=== PATIENT | female | born 1990 | race Two or more races ===

== ENCOUNTER → 2018-01-23 13:51 | Outpatient (CLI) | payer OTHER, SELFPAY ==
--- NOTE | 2018-01-23 14:01 | MM_ITS ---
MM Dig mamm BI DX w/CAD RIGHT MAMMOGRAM COMPLETE WITH AXILLA No previous studies available for comparison. INDICATION: Bilateral breast pain, reported palpable abnormality in the superior periareolar region. ORDERING PHYSICIAN: Delgado Dent MD PATIENT AGE: 27 years TECHNIQUE: Standard mammogram performed along spot compression view of the right breast. FINDINGS: There is dense fibroglandular tissue bilaterally decreasing the sensitivity of mammography. Asymmetric density is present in the retroareolar region on both sides and in the deep aspect of the right breast felt to be related to fibroglandular tissue. No malignant appearing mass or malignant appearing microcalcification. Right breast ultrasound: No cystic or solid lesions evident. There are small nodes in the axilla. IMPRESSION: No evidence of malignancy. BI-RADS Category: 2 Benign Finding(s) Follow-up is suggested as clinically warranted. Correlation with clinical exam is apparent amount in this patient with dense breast tissue. Any palpable nodule should be managed on a clinical basis. Negative mammogram and negative ultrasound does not exclude the possibility of malignancy especially in a patient with fairly dense breast tissue.
--- NOTE | 2018-01-23 14:01 | US_ITS ---
US transvaginal HISTORY: Painful intercourse ITS.REASON: dub ORDERING PHYSICIAN: Delgado Dent MD PATIENT AGE: 27 years FINDINGS: Uterus is 8 x 4 x 5.5 cm with a combined endometrial thickness of 7 mm. Small area of fluid echogenicity is noted within the superior aspect of the endometrial canal. The transverse images there is an 8 mm area of isoechogenicity noted within the endometrial canal and could be due to small polyp. Partial volume averaging artifact from the overlying fluid is also a consideration. scar is noted. The left ovary is 4 x 3.5 cm and contains multiple small follicles measuring up to 9 mm. Blood flow is present. The right ovary measures 2.3 x 1.8 cm and contains small follicles measuring up to 8 mm. Blood flow is present. No cul-de-sac fluid is evident. IMPRESSION: 1. Possible small uterine endometrial polyp. 2. Bilateral ovarian follicles
== END ==
PROVIDERS: PCP Family Medicine; Visit Provider Obstetrics & Gynecology
DX: R92.8 Other abnormal and inconclusive findings on diagnostic imaging of breast (principal); N93.8 Other specified abnormal uterine and vaginal bleeding
CPT/HCPCS: 76641; 76830; 77066

== ENCOUNTER 2021-02-19 20:59 | Emergency (ER) | payer OTHER, SELFPAY ==
[2021-02-19 21:08] VITALS: BP 125/80; PULSE 79; RESP 16; TEMP 36.9; O2SAT 99; BMI 26.5
--- NOTE | 2021-02-19 21:20 | CT_ITS ---
PROCEDURE INFORMATION: Exam: CT Head Without Contrast Exam date and time: 02/19/2021 9:20 PM Age: 30 years old Clinical indication: Pain; Headache; Aura effect not specified; Does not respond to medication; Severity not specified; Patient HX: Migraine for 1 day, HX of migraines; Additional info: H/a TECHNIQUE: Imaging protocol: Computed tomography of the head without contrast. Radiation optimization: All CT scans at this facility use at least one of these dose optimization techniques: automated exposure control; mA and/or kV adjustment per patient size (includes targeted exams where dose is matched to clinical indication); or iterative reconstruction. COMPARISON: No relevant prior studies available. FINDINGS: Brain: Normal. No hemorrhage. Unremarkable white matter. No mass effect. Cerebral ventricles: No ventriculomegaly. Bones/joints: Unremarkable. No acute fracture. Paranasal sinuses: Small mucous retention cyst or polyp involving the right sphenoid sinus. Mastoid air cells: Visualized mastoid air cells are well aerated. Soft tissues: Unremarkable. IMPRESSION: No acute intracranial abnormality.
--- NOTE | 2021-02-19 21:20 | CT_ITS ---
PROCEDURE INFORMATION: Exam: CT Maxillofacial Without Contrast, Sinus Exam date and time: 02/19/2021 9:20 PM Age: 30 years old Clinical indication: Pain; Headache; Aura effect not specified; Migraine responds to medication? ; Severity not specified; Patient HX: Migraine for 1 day, HX of migraines; Additional info: H/a TECHNIQUE: Imaging protocol: CT Maxillofacial without contrast. Focus on the sinuses. Radiation optimization: All CT scans at this facility use at least one of these dose optimization techniques: automated exposure control; mA and/or kV adjustment per patient size (includes targeted exams where dose is matched to clinical indication); or iterative reconstruction. COMPARISON: No relevant prior studies available. FINDINGS: Frontal sinuses: Normal. No air-fluid levels. Ethmoid air cells: Normal. No air-fluid levels. Sphenoid sinuses: Right sphenoid sinus mucous retention cyst or polyp measures 8 mm. Maxillary sinuses: Right maxillary sinus mucous retention cyst or polyp measures 7 mm. There is minimal additional mucosal thickening involving both maxillary sinuses. Nasal cavity/Septum: Unremarkable. Orbital cavity: Orbits are normal. Globes are unremarkable. Bones/joints: Unremarkable. Soft tissues: Unremarkable. IMPRESSION: 1. No acute abnormality. 2. Mild sinus mucosal disease as above.
[2021-02-19 21:29] LABS: Microscopic, Urine URINE MICROSCOPIC (MICROSCOPIC)
[2021-02-19 21:32] LABS: Basophils % 0.3 % (0.1-2.0); Eosinophils % 0.4 % (0.1-12.0); Hematocrit 38.7 % (37.0-47.0); Hemoglobin 13.1 g/dL (12.2-16.2); Lymphocytes # 1.5 K/mm3 (0.7-4.5); Mean Corpuscular HGB Conc 33.8 g/dL (31.8-35.4); Mean Corpuscular Hemoglobin 29.9 pg (27.0-31.2); Mean Corpuscular Volume 88.4 fl (81-99); Mean Platelet Volume 8.2 fl (7.4-10.4); Monocytes # 0.4 K/mm3 (0.1-1.0); Monocytes % 3.9 % (1.7-9.3); Neutrophils # 8.2 K/mm3 (1.8-7.8); Neutrophils % 80.4 % (37.0-80.0); Platelet Count 258 K/mm3 (142-424); Red Blood Count 4.37 M/mm3 (4.20-5.40); Red Cell Distribution Width 13.6 % (11.5-17.5); White Blood Count 10.1 K/mm3 (4.8-10.8)
[2021-02-19 21:33] LABS: Appearance,Urine CLEAR (Clear); Bilirubin,Urine Negative (Negative); Blood, Urine 3+ (Negative); Color,Urine YELLOW (Yellow); Glucose,Urine (UA) Negative (Negative); Ketones,Urine 1+ (Negative); Leukocyte Esterase,Urine TRACE (Negative); Nitrate,Urine Negative (Negative); Protein,Urine 1+ (Negative); Specific Gravity, Urine 1.015 (1.005-1.030)
[2021-02-19 21:36] LABS: Alanine Aminotransferase 17 U/L (12-78); Albumin Level 4.9 g/dl (3.5-5.0); Albumin/Globulin Ratio 1.5 (1.1-1.8); Alkaline Phosphatase 62 U/L (38-126); Anion Gap 10.6 mEq/L (5-15); Aspartate Amino Transferase 25 U/L (14-36); Bilirubin,Total 0.6 mg/dl (0.2-1.3); Blood Urea Nitrogen 8 mg/dl (7-17); Calcium 9.5 mg/dl (8.4-10.2); Carbon Dioxide 27 mmol/L (22.0-30.0); Chloride 105 mmol/L (98-107); Creatinine Clearance Estimated 144 mL/min (50-200); Estimated Glomerular Filt Rate 118 ml/min (>60); GFR (African American) 143 ML/MIN (>60); Globulin 3.2 g/dL (1.3-3.2); Glucose 103 mg/dl (74-100); Potassium 3.6 mmoL/L (3.5-5.1); Sodium 139 mmol/L (136-145); Total Protein,Serum 8.1 g/dl (6.3-8.2)
[2021-02-19 21:39] LABS: Bacteria,Urine 1+ /lpf; RBC,Urine TNTC #/hpf (0-3)
[2021-02-19 21:40] LABS: Urine Pregnancy, HCG Qual. Negative (Negative)
[2021-02-19 21:41] LABS: C-Reactive Protein 3.3 mg/L (0-4)
--- NOTE | 2021-02-19 21:44 | HMH.EDHA ---
ED Disposition Clinical Impression: Headache Qualifiers: Headache type: unspecified Headache chronicity pattern: acute headache Intractability: not intractable Qualified Code(s): R51.9 - Headache, unspecified Disposition: Home, Self-Care Condition on Discharge: Good Instructions: DI for Headache Additional Instructions: use meds and see pcp and neuro Referrals: Lyndon East [Primary Care Provider] - Liliam Drake MD [Staff Physician] - - Critical Care Critical Care Time: No Attestation: On 02/19/21, the high probability of a clinically significant, sudden or life threatening deterioration of the following system(s) required my full and direct attention, intervention and personal management. The time I documented below is in addition to time spent performing reported procedures but includes the following listed in this critical care notation. Medical Decision Making - Medical Records Medical records reviewed: Yes: I reviewed the patient's medical records. - Julio Cesar Inquiry Pt receiving controlled substance: No Vital Signs: 02/19/21 21:08 Temperature 98.5 F Temperature Source Oral Pulse Rate [Right] 79 Respiratory Rate 16 Blood Pressure [Right Arm] 125/80 Blood Pressure Mean [Right Arm] 95 Blood Pressure Source [Right Arm] Automatic Cuff Blood Pressure Position [Right Arm] Sitting 02 Sat by Pulse Oximetry 99 Oxygen Delivery Method Room Air - Lab Data Lab results reviewed: Yes: I reviewed the patient's lab results. Lab Results 02/19/21 21:12: Urine Color Yellow, Urine Appearance Clear, Urine pH 8.0, Ur Specific [place] 1.015, Urine Protein 1+, Urine Glucose (UA) Negative, Urine Ketones 1+, Urine Blood 3+, Urine Nitrate Negative, Urine Bilirubin Negative, Urine Urobilinogen 1.0, Ur Leukocyte Esterase Trace, Urine RBC Tntc, Urine WBC 3-5, Ur Squamous Epith Cells 3-5, Urine Bacteria 1+ 02/19/21 21:12: WBC 10.1, RBC 4.37, Hgb 13.1, Hct 38.7, MCV 88.4, MCH 29.9, MCHC 33.8, RDW 13.6, Plt Count 258, MPV 8.2, Neut % (Auto) 80.4 H, Lymph % (Auto) 15.0, Wright % (Auto) 3.9, Eos % (Auto) 0.4, Baso % (Auto) 0.3, Neut # (Auto) 8.2 H, Lymph # (Auto) 1.5, Wright # (Auto) 0.4, Eos # (Auto) 0.0, Baso # (Auto) 0.0, ESR 16 02/19/21 21:12: Urine HCG, Qual Negative 02/19/21 21:12: Sodium 139, Potassium 3.6, Chloride 105, Carbon Dioxide 27, Anion Gap 10.6, BUN 8, Creatinine 0.60, Estimated Creat Clear 144, Estimated GFR 118, Est GFR ( Amer) 143, Glucose 103 H, Calcium 9.5, Total Bilirubin 0.6, AST 25, ALT 17, Alkaline Phosphatase 62, C-Reactive Protein 3.3, Total Protein 8.1, Albumin 4.9, Globulin 3.2, Albumin/Globulin Ratio 1.5, Procalcitonin < 0.030 02/19/21 21:12: Urine Opiates Screen Negative, Urine Methadone Screen Negative, Ur Barbituates Screen Negative, Ur Phencyclidine Scrn Negative, Ur Amphetamines Screen Negative, U Benzodiazepines Scrn Negative, Urine Cocaine Screen Negative, U Marijuana (THC) Screen Negative Result diagrams: 02/19/21 21:12 02/19/21 21:12 Orders (Tests/Meds): ED MEDICATIONS Generic Name Dose Route Start Last Admin Trade Name Freq PRN Reason Stop Dose Admin Sodium Chloride 1,000 mls @ 999 mls/hr 02/19/21 21:30 02/19/21 21:42 Sod Chlor 0.9% 1000ml Bag IV 02/19/21 22:30 999 mls/hr .[id number] JOAN Administration Discontinued Medications Generic Name Dose Route Start Last Admin Trade Name Freq PRN Reason Stop Dose Admin Acetaminophen/Codeine Phosphate 1 ashley 02/19/21 22:38 Acetaminophen 300mg W/Codeine 30mg Take Home Pack (6) PO 02/19/21 22:39 ONCE ONE Ketorolac Tromethamine 30 mg 02/19/21 21:20 02/19/21 21:42 Ketorolac 30mg/Ml Vial IV 02/19/21 21:21 30 mg ONCE ONE Administration Ondansetron HCl 4 mg 02/19/21 21:20 02/19/21 21:42 Ondansetron 4mg/2ml Vial IV 02/19/21 21:21 4 mg ONCE ONE Administration - CT Data CT Scan: Head, Sinus Time Received: 22:[address] Reviewed: Yes: I have viewed the radiologist's interpretation Preliminary Findings
[2021-02-19 21:46] LABS: Barbiturates Screen,Urine Negative ng/ml (<200)
[2021-02-19 21:47] LABS: Amphetamine/Metha Screen,Urine Negative ng/ml (<1000); Benzodiazepines Screen,Urine Negative ng/ml (<200)
[2021-02-19 21:48] LABS: Methadone Screen,Urine Negative ng/ml (<300)
[2021-02-19 21:49] LABS: Cannabinoid Screen,Urine Negative ng/ml (<50); Cocaine Screen,Urine Negative ng/ml (<300)
[2021-02-19 21:50] LABS: Opiate Screen,Urine Negative ng/ml (<300)
[2021-02-19 21:51] LABS: Phencyclidine Screen,Urine Negative ng/ml (<25)
[2021-02-19 21:55] LABS: Procalcitonin < 0.030 ng/mL (0.0-2.0)
[2021-02-19 22:03] LABS: Erythrocyte Sedimentation Rate 16 mm/hr (0-20)
[2021-02-19 22:49] VITALS: BP 128/74; PULSE 72; RESP 16; TEMP 36.9; O2SAT 98
== END 2021-02-19 22:52 | disposition home or self-care (01) ==
PROVIDERS: Emergency Provider Emergency Medicine; PCP Family Medicine
DX: G43.009 Migraine without aura, not intractable, without status migrainosus (principal)
CPT/HCPCS: 70450; 70486; 80053; 80305; 81001; 81025; 84145; 85025; 85651; 86140; 96365; 96375; 99283; J2405

== ENCOUNTER → 2021-02-25 14:08 | Outpatient (CLI) | payer OTHER, SELFPAY ==
[2021-02-25 15:55] LABS: HCG,Quantitative < 2 mIU/ml (0-5.42)
== END ==
PROVIDERS: Visit Provider Obstetrics & Gynecology
DX: N92.6 Irregular menstruation, unspecified (principal)
CPT/HCPCS: 36415; 84702